=== PATIENT | female | born 1930 ===

== ENCOUNTER → 2020-04-30 | Outpatient (CLI) | payer MEDICARE | LOC: BFHH 16:00 | PROVIDERS: ATTEND Family Medicine | DX: D51.3 Other dietary vitamin B12 deficiency anemia (principal); F33.9 Major depressive disorder, recurrent, unspecified; I10 Essential (primary) hypertension; Z86.73 Personal history of transient ischemic attack (TIA), and cerebral infarction without residual deficits ==